=== PATIENT | male | born 1995 ===

== ENCOUNTER 2023-07-08 17:27 | Inpatient (IN) | payer OTHER ==
[~2023-07-08] VITALS: Ht 182.9 cm; Wt 79.4 kg
[2023-07-08] MEDS ORDERED: HYDROmorphone HCl/Pf 1MG SYR IV PRN (17:35)
[2023-07-08] MEDS ORDERED: NS 1,000 ML IV SCH (17:35)
[2023-07-08] MEDS ORDERED: Ondansetron HCl 2 MG / ML 2ML Vial IV PRN (17:35)
[2023-07-08] MEDS ORDERED: propofoL 100 ML IV SCH (18:10)
[2023-07-08] MEDS ORDERED: CeFAZolin Sodium 2,000 MG in NS 100 ML IV ONE (19:20)
[2023-07-08] MEDS ORDERED: Hydrocortisone 1% Ointment 30 GM Tube TOP ONE (20:20)
[2023-07-08 20:29] LABS: BASOPHILS ABSOLUTE AUTO 0.04 K/mm3 (0.00-0.23); BASOPHILS PERCENT AUTO 0 % (0-2); EOSINOPHILS ABSOLUTE AUTO 0.33 K/mm3 (0.00-0.68); EOSINOPHILS PERCENT AUTO 3 % (0-6); Hematocrit 42.3 % (37.0-53.0); Hemoglobin 14.2 g/dL (13.5-17.5); IMMATURE GRAN ABSOLUTE AUTO 0.02 K/mm3 (0.00-0.10); IMMATURE GRAN PERCENT AUTO 0 % (0-1); LYMPHOCYTES ABSOLUTE AUTO 3.79 K/mm3 (0.84-5.20); LYMPHOCYTES PERCENT AUTO 36 % (21-46); MONOCYTES ABSOLUTE AUTO 0.89 K/mm3 (0.16-1.47); MONOCYTES PERCENT AUTO 8 % (4-13); Mean Corpuscular HGB 29.8 pg (26.0-34.0); Mean Corpuscular HGB Conc 33.6 g/dL (31.5-36.5); Mean Corpuscular Volume 89 fL (80-100); Mean Platelet Volume 10.3 fL (9.1-12.4); NEUTROPHILS ABSOLUTE AUTO 5.61 K/mm3 (1.96-9.15); NEUTROPHILS PERCENT AUTO 53 % (41-73); Platelet Count 310 K/mm3 (150-400); RDW Coefficient Variation 13.4 % (11.7-14.2); RDW Standard Deviation 43.8 fL (35.1-46.3); Red Blood Cell Count 4.77 M/mm3 (4.30-5.90); White Blood Cell Count 10.68 K/mm3 (4.00-11.30)
[2023-07-08 20:43] LABS: Albumin/Globulin Ratio 1.2 (0.8-1.8); Bilirubin, Total 0.1 mg/dL (0.1-1.0); Bun/Creatinine Ratio 22.9 (12.0-20.0); Calcium, Blood 9.1 mg/dL (8.5-10.1); Creatinine, Blood 0.92 mg/dL (0.60-1.20); Globulin, Blood 3.3 g/dL (2.2-4.0); Potassium, Blood 3.6 mmol/L (3.5-5.5); Total Protein, Blood 7.3 g/dL (6.4-8.2)
--- NOTE | 2023-07-08 21:45 | NUR ---
MEDICATION MANAGEMENT CALL PLACED TO DR. REYNA D/T PT REQUESTING TO GO OUTSIDE TO SMOKE, DR REPORTED A NICOTINE PATCH WOULD NOT BE THE BEST FOR THE PATIENT AT THIS TIME. ALSO RECIEVED ORDER FOR HOSPITALIST CONSULT FOR BP MANAGEMENT
[2023-07-08 21:46] VITALS: BP 144/97
[2023-07-08] MEDS ORDERED: HydrALAZINE HCl 20 MG / ML 1ML Vial IV PRN (22:05)
[2023-07-08] MEDS ORDERED: Naloxone HCl 0.4MG / ML 1ML Vial IV PRN ×2 (22:10→22:50)
[2023-07-08] MEDS ORDERED: Acetaminophen 325 MG TABLET PO PRN ×2 (22:10→23:00)
[2023-07-08] MEDS ORDERED: OxyCODONE HCL 5 MG TAB PO PRN ×2 (22:10→23:00)
[2023-07-08] MEDS ORDERED: Ketorolac Tromethamine 15mg Vial IV PRN (22:15)
[2023-07-08 22:46] VITALS: BP 144/97
[2023-07-08] MEDS ORDERED: DiphenhydrAMINE HCl 50 MG Cap PO PRN (22:50)
[2023-07-08] MEDS ORDERED: OxyCODONE HCL 5 MG TAB PO ONE (23:00)
[2023-07-08] MEDS ORDERED: Lactated Ringer's 1,000 ML IV SCH (23:00)
[2023-07-08] MEDS ORDERED: Acetaminophen 325 MG TABLET PO ONE (23:00)
[2023-07-08] MEDS ORDERED: Pramoxine HCl/Zinc Acetate Lotion 177 ML TOP PRN (23:00)
[2023-07-09] VITALS (18 sets, daily range): BP systolic 125–165; BP diastolic 81–101
--- NOTE | 2023-07-09 04:52 | NUR ---
Patient arrived from ED around 2100. Patient alert and oriented, VSS, resting quietly in bed majority of shift with significant other resting in room. PRN pain medication given x2. Patient anticipating surgery to right hand sometime today, maintaining NPO as ordered.
[2023-07-09 05:14] LABS: BASOPHILS ABSOLUTE AUTO 0.02 K/mm3 (0.00-0.23); BASOPHILS PERCENT AUTO 0 % (0-2); EOSINOPHILS ABSOLUTE AUTO 0.31 K/mm3 (0.00-0.68); EOSINOPHILS PERCENT AUTO 3 % (0-6); Hematocrit 38.8 % (37.0-53.0); IMMATURE GRAN ABSOLUTE AUTO 0.04 K/mm3 (0.00-0.10); IMMATURE GRAN PERCENT AUTO 0 % (0-1); LYMPHOCYTES ABSOLUTE AUTO 2.98 K/mm3 (0.84-5.20); LYMPHOCYTES PERCENT AUTO 25 % (21-46); MONOCYTES ABSOLUTE AUTO 1.31 K/mm3 (0.16-1.47); MONOCYTES PERCENT AUTO 11 % (4-13); Mean Corpuscular HGB 29.9 pg (26.0-34.0); Mean Corpuscular HGB Conc 33.5 g/dL (31.5-36.5); Mean Corpuscular Volume 89 fL (80-100); Mean Platelet Volume 9.8 fL (9.1-12.4); NEUTROPHILS ABSOLUTE AUTO 7.23 K/mm3 (1.96-9.15); NEUTROPHILS PERCENT AUTO 61 % (41-73); Platelet Count 284 K/mm3 (150-400); RDW Coefficient Variation 13.5 % (11.7-14.2); RDW Standard Deviation 44.1 fL (35.1-46.3); Red Blood Cell Count 4.35 M/mm3 (4.30-5.90); White Blood Cell Count 11.89 K/mm3 (4.00-11.30)
[2023-07-09 06:04] LABS: Albumin, Blood 3.3 g/dL (3.4-5.0); Albumin/Globulin Ratio 1.2 (0.8-1.8); Bilirubin, Total 0.2 mg/dL (0.1-1.0); Bun/Creatinine Ratio 21.7 (12.0-20.0); Calcium, Blood 8.5 mg/dL (8.5-10.1); Creatinine, Blood 0.87 mg/dL (0.60-1.20); Globulin, Blood 2.8 g/dL (2.2-4.0); Magnesium, Blood 1.9 mg/dL (1.6-2.4); Potassium, Blood 4.3 mmol/L (3.5-5.5); Thyroid Stimulating Hormone 1.44 uIU/mL (0.360-4.800); Total Protein, Blood 6.1 g/dL (6.4-8.2)
[2023-07-09] MEDS ORDERED: CeFAZolin Sodium 2,000 MG in NS 100 ML IV PRN (07:45)
[2023-07-09] MEDS ORDERED: Ipratropium/Albuterol SulF 2.5-0.5MG/3 ML Amp ONE (07:56)
[2023-07-09] MEDS ORDERED: propofoL 20 ML IV ONE (07:58)
[2023-07-09] MEDS ORDERED: Lidocaine HCl 2% 20 ML MDV ONE (07:58)
[2023-07-09] MEDS ORDERED: Dexamethasone Sod Phos 10 MG/ML 1ML VIAL ONE (08:11)
[2023-07-09] MEDS ORDERED: FentaNYL Citrate 50 MCG/ML 2 ML Injection ONE ×2 (08:16→11:02)
[2023-07-09] MEDS ORDERED: CeFAZolin Sodium 1000 mg Vial ONE (08:17)
[2023-07-09] MEDS ORDERED: Ondansetron HCl 2 MG / ML 2ML Vial ONE (09:12)
[2023-07-09] MEDS ORDERED: Ketorolac Tromethamine 30mg Vial ONE (11:01)
[2023-07-09] MEDS ORDERED: OxyCODONE HCL 5 MG TAB PO PRN ×2 (11:30→19:50)
[2023-07-09] MEDS ORDERED: Acetaminophen 325 MG TABLET PO PRN (11:30)
[2023-07-09] MEDS ORDERED: NS KCl 20mEq 1,000 ML IV SCH (11:30)
[2023-07-09] MEDS ORDERED: Ondansetron HCl 2 MG / ML 2ML Vial IV PRN (11:35)
[2023-07-09] MEDS ORDERED: Ondansetron 4 MG TAB PO PRN (11:35)
[2023-07-09] MEDS ORDERED: Metoclopramide HCl 10 MG Tab PO PRN (11:35)
[2023-07-09] MEDS ORDERED: Magnesium Hydroxide Conc 10 ML UDC PO PRN (11:35)
[2023-07-09] MEDS ORDERED: Naloxone HCl 0.4MG / ML 1ML Vial IV PRN (11:35)
[2023-07-09] MEDS ORDERED: HYDROmorphone HCl/Pf 1MG SYR IV PRN (11:40)
[2023-07-09] MEDS ORDERED: Bisacodyl 10 MG Supp PR PRN (11:40)
--- NOTE | 2023-07-09 12:03 | NUR ---
ARRIVAL PT ARRIVED TO UNIT FROM PACU. R WRIST WITH SPLINT AND NIC WRAP. GAUZE WITH SANGUINOUS DRAINAGE AROUND FINGERTIPS. PT AWAKE AND ORIENTED ANSWERS QUESTIONS APPROPRIATLY. BUT REPORTS BEING TIRED. STATES THAT PAIN IS 8/10. SOME RELIEF WITH REPOSITIONING. ARM ELEVATED ON PILLOWS. ICE PACK ON ARM. ABLE TO SLIGHTLY WIGGLE FINGERS BUT PAIN WITH MOVEMENT. FINGERS ARM WARM TO TOUCH AND CAP REFILL IS <3. PT TOLERATING DIET AT THIS TIME, NO NAUSEA. SIGNIFICANT OTHER AT BEDSIDE ASSISTING PATIENT WITH EATING.
[2023-07-09] MEDS ORDERED: Ketorolac Tromethamine 30mg Vial IV PRN (12:05)
[2023-07-09] MEDS ORDERED: CeFAZolin Sodium 2,000 MG in NS 100 ML IV SCH (16:30)
--- NOTE | 2023-07-09 16:44 | NUR ---
SHIFT SUMMARY S/P R ORIF AND I&D DRESSING REMAINS CDI. PT REPORTS SIGNIFICANT PAIN BUT IMPROVING DURING THE DAY. HE REPORTS TOLERABLE AT TIMES. ABLE TO AMBULATE WELL, USING SLING WHILE UP. WHEN IN BED ARM ELEVATED ON MULTIPLE PILLOWS. DENIES ANY OTHER DISCOMFORT. LOOKING FORWARD TO DISCHARGING.
[2023-07-09] MEDS ORDERED: Trimethoprim/Sulfamethoxazole DS Tab PO SCH (17:00)
[2023-07-09] MEDS ORDERED: Docusate Sodium 100 MG Cap PO SCH (21:00)
[2023-07-10 04:07] VITALS: BP 142/86
--- NOTE | 2023-07-10 06:52 | NUR ---
POD 1 S/P ORIF OF RUE. PT VSS T/O NIGHT. PT REP LESS N/T TO FINGERS THIS AM, CONT TO REP MILD TINGLING TO THUMB. FINGERS WARM, CAP REFILL WNL. SMALL AMT SS DRNG NOTED TO FINGER DRESSINGS, SPLINT CDI, SLING IN PLACE. PT ELEVATING ARM ON 2-3 PILLOWS, USING ICE PRN. PT REP BETTER PAIN CONTROL W/10MG OXYCODONE, DID NOT REQUIRE IV BREAKTHROUGH MED AFTER PO MEDS ADJUSTED. PT AMB INDEP IN PERFECTO PERERA WELL. DR GREENBERG IN FOR UPDATE THIS AM.
[2023-07-10 07:18] VITALS: BP 150/92
[2023-07-10] MEDS ORDERED: Percocet 5-3251 EACH PO (10:51)
[2023-07-10] MEDS ORDERED: SULTRIDS PO (10:52)
[2023-07-10] MEDS ORDERED: ATEN25 PO (11:30)
--- NOTE | 2023-07-10 12:45 | NUR ---
DISCHARGE SUMMARY PT A&OX4, VSS/RA, PERFECTO PO, VOIDING, AMB INDEPENDENTLY, PAIN MANAGED, IV DC'D, PRESENT FOR DC INS/BOTH REP UNDERSTANDING THOSE INSTRUCTIONS INCLUDING RUE NWB AND KEEP SPLINT CDI UNTIL FU, FU WITH SURGEON X 2WKS AND CALL IN THE MEANTIME WITH ANY Q'S, DAILY CLEANING AND DRESSING CHANGES FOR R FINGERS, ABX/ STOOL SOFTENER/PAIN MED/BP MED SCRIPTS PROVIDED, DRESSING CHANGE SUPPLIES PROVIDED. WALKED OFF FLOOR WITH ALL PERSONAL POSSESSIONS INCLUDING DC PACKET AND DRESSING SUPPLIES AND SCRIPTS.
== END 2023-07-10 12:35 | disposition home or self-care (01) | DRG 512 ==
LOC: ER 17:27 → SURS 17:28
PROVIDERS: Emergency Medicine; Student in an Organized Health Care Education/Training Program; ADMIT Orthopaedic Surgery
PROC: 0HQDXZZ Repair Right Lower Arm Skin, External Approach (ICD-10-PCS; 2023-07-08)
PROC: 0PSHXZZ Reposition Right Radius, External Approach (ICD-10-PCS; 2023-07-08)
PROC: 0PSH04Z Reposition Right Radius with Internal Fixation Device, Open Approach (ICD-10-PCS; principal; 2023-07-09 08:00)
PROC: 0RSN04Z Reposition Right Wrist Joint with Internal Fixation Device, Open Approach (ICD-10-PCS; 2023-07-09 08:00)
DX: S52.571B Other intraarticular fracture of lower end of right radius, initial encounter for open fracture type I or II (principal); W37.8XXA Explosion and rupture of other pressurized tire, pipe or hose, initial encounter; I10 Essential (primary) hypertension; F17.210 Nicotine dependence, cigarettes, uncomplicated; R73.9 Hyperglycemia, unspecified; L23.7 Allergic contact dermatitis due to plants, except food; Z71.6 Tobacco abuse counseling
CPT/HCPCS: 12004; 25605; 36415; 73090; 73200; 76000; 80053; 83036; 83735; 84443; 85025; 94762; 96361-59; 96365-59; 96375; 96375-59; 96376-59; 97110; 97165; 97530; 99152; 99285-25; A9270; C1713; C1776; G0378; J0690; J1100; J1170; J1885; J2405; J2704; J3010; J7030; J7120